=== PATIENT | male | born 1960 | race Hispanic/Latino ===

== ENCOUNTER 2019-10-22 14:03 | Inpatient (IN) | payer OTHER, SELFPAY ==
[~2019-10-22] VITALS: Ht 157.5 cm; Wt 80.6 kg
[2019-10-22 14:23] LABS: BASOPHILS % (AUTO) 0.7 % (0.0-5.0); HEMATOCRIT 44.9 % (42-54); LYMPHOCYTES % (AUTO) 12.1 % (21.0-51.0); MEAN CORPUSCULAR HEMOGLOBIN 29.1 pg (27.0-33.0); MEAN CORPUSCULAR HGB CONC 33.4 g/dL (32.0-36.0); MONOCYTES % (AUTO) 10.9 % (3.0-13.0); NEUTROPHILS % (AUTO) 75.6 % (40.0-77.0); NUCLEATED RED BLOOD CELLS 0.4 % (0.0-0.19); PLATELET COUNT (AUTO) 245 K/uL (130-400); RED BLOOD CELL COUNT(AUTO) 5.16 MIL/uL (4.50-6.20); RED CELL DISTRIBUTION WIDTH 14.8 % (11.0-15.5); WHITE BLOOD COUNT (AUTO) 5.5 K/uL (4.8-10.8)
[2019-10-22 14:33] LABS: INR 0.96 (0.85-1.15); PARTIAL THROMBOPLASTIN TIME 31.5 SEC (26.3-35.5); PROTHROMBIN TIME 10.1 SEC (9.6-11.6)
[2019-10-22 14:39] LABS: APPEARANCE,URINE Clear (CLEAR); BILIRUBIN,URINE Negative (NEGATIVE); COLOR,URINE Yellow (YELLOW); GLUCOSE, URINE (UA) >=1000 mg/dL (NEGATIVE); KETONES,URINE >=160 mg/dL (NEGATIVE); LEUKOCYTE ESTERASE ,URINE Negative (NEGATIVE); NITRATE,URINE Negative (NEGATIVE); OCCULT BLOOD,URINE Moderate (NEGATIVE); PROTEIN,URINE Trace mg/dL (NEGATIVE); UROBILINOGEN,URINE 0.2 mg/dL (0.2-1.0)
[2019-10-22 14:55] LABS: ALANINE AMINOTRANSFERASE 25 U/L (12-78); ALBUMIN 2.6 g/dL (3.5-5.0); ASPARTATE AMINOTRANSFERASE 18 U/L (10-37); BILIRUBIN,TOTAL 0.7 mg/dL (0.2-1.0); CREATINE KINASE, TOTAL 210 U/L (21-232); CREATININE 1.4 mg/dL (0.5-1.5); GLOMERULAR FILTR. RATE CALC 55 mL/min (>60); MYOGLOBIN 492 ng/mL (10-92); SODIUM SERUM 126 mmol/L (136-145); TOTAL PROTEIN, SERUM 7.5 g/dL (6.0-8.3); TROPONIN I < 0.04 ng/mL (0.00-0.06); UREA NITROGEN, BLOOD 37 mg/dL (7-18)
[2019-10-22 15:00] LABS: AMORPHOUS SEDIMENT,UR Few /LPF (None Seen); BACTERIA,URINE Few /HPF (None Seen); MUCUS,URINE Few LPF (None Seen); SQUAMOUS EPITHELIAL CELL,UR 0-2 /HPF (0-2)
[2019-10-22] MEDS ORDERED: ONDANSETRON HCL 4 MG/2 ML VIAL ONE (15:00)
[2019-10-22 15:05] LABS: CARBON DIOXIDE 10 mmol/L (21-32); CHLORIDE 87 mmol/L (101-111); POTASSIUM 2.5 mmol/L (3.5-5.1)
[2019-10-22] MEDS ORDERED: SODIUM CHLORIDE 0.9% 100 ML IV ONE ×2 (15:05→16:52)
[2019-10-22 15:18] LABS: GLUCOSE,RANDOM 759 mg/dL (70-105)
[2019-10-22] MEDS ORDERED: POTASSIUM CHLORIDE 20MEQ/100ML 200 ML IV ONE (15:22)
[2019-10-22] MEDS ORDERED: POTASSIUM BICARB/CIT AC 25 MEQ TABLET.EFF ONE (15:22)
[2019-10-22 15:33] LABS: MAGNESIUM 2.8 mg/dL (1.80-2.40); PHOSPHORUS 2.9 mg/dL (2.5-4.9)
[2019-10-22] MEDS ORDERED: OCTREOTIDE 1,250 MCG /NS 250ML (DRIP) IV SCH ×2 (16:00)
[2019-10-22 16:47] LABS: ABG BASE EXCESS -21.6 mmol/L (-2.0-3.0); ABG HCO3 4.8 mmol/L (21.0-28.0); ABG OXYGEN SATURATION 96.8 % (95.0-99.0); ABG PCO2 < 17 mmHg (35-48)
[2019-10-22] MEDS ORDERED: ZOSYN 3.375GM+NS 50ML 50 ML IV ONE (16:50)
[2019-10-22] MEDS ORDERED: INSULIN HUMULIN R 100 UNIT/ML 3ML ONE (16:52)
[2019-10-22] MEDS: SODIUM CHLORIDE 0.9% 1000ML 1,000 ML IV SCH ×4 (18:21→23:29)
[2019-10-22] MEDS ORDERED: SODIUM CHLORIDE 0.9% 1000ML 1,000 ML IV SCH (18:29)
[2019-10-22] MEDS ORDERED: DEXTROSE 5 %-0.45 % NACL 1,000 ML IV PRN (18:29)
[2019-10-22] MEDS ORDERED: MORPHINE SULFATE 2 MG/ML 1ML SYG IV PRN (18:30)
[2019-10-22 19:03] LABS: CHOLESTEROL 299 mg/dL (<200); HDL CHOLESTEROL 42 mg/dL (29-71); LDL DIRECT 145 mg/dL (0-99); TRIGLYCERIDES 614 mg/dL (30-200)
[2019-10-22] MEDS ORDERED: LIDOCAINE HCL-MPF 1% 2ML VIAL ONE (19:22)
[2019-10-22] MEDS ORDERED: POTASSIUM CHLORIDE 20MEQ/100ML 100 ML IV ONE (19:22)
[2019-10-22] MEDS ORDERED: POTASSIUM CHLORIDE 20 MEQ ERTAB PO ONE (19:27)
[2019-10-22 19:58] LABS: HEMOGLOBIN A1C 10.9 % (4.0-6.0)
[2019-10-23] MEDS ORDERED: DEXTROSE 5 %-0.45 % NACL 1,000 ML IV ONE (00:43)
[2019-10-23] MEDS ORDERED: SODIUM BICARB 50MEQ 50ML VIAL ONE ×2 (00:43→00:44)
[2019-10-23 00:47] LABS: BASOPHILS % (AUTO) 0.4 % (0.0-5.0); HEMATOCRIT 38.8 % (42-54); LYMPHOCYTES % (AUTO) 24.2 % (21.0-51.0); MEAN CORPUSCULAR HEMOGLOBIN 28.8 pg (27.0-33.0); MEAN CORPUSCULAR HGB CONC 35.1 g/dL (32.0-36.0); MEAN CORPUSCULAR VOLUME 82.2 fL (79-99); MONOCYTES % (AUTO) 10.5 % (3.0-13.0); NEUTROPHILS % (AUTO) 64.5 % (40.0-77.0); PLATELET COUNT (AUTO) 216 K/uL (130-400); RED BLOOD CELL COUNT(AUTO) 4.72 MIL/uL (4.50-6.20); WHITE BLOOD COUNT (AUTO) 5.3 K/uL (4.8-10.8)
[2019-10-23 01:02] LABS: ALBUMIN 2.2 g/dL (3.5-5.0); BILIRUBIN,TOTAL 0.6 mg/dL (0.2-1.0); CREATININE 1.1 mg/dL (0.5-1.5); MAGNESIUM 2.5 mg/dL (1.80-2.40); TOTAL PROTEIN, SERUM 6.3 g/dL (6.0-8.3)
[2019-10-23 01:15] LABS: POTASSIUM 2.8 mmol/L (3.5-5.1)
[2019-10-23] MEDS ORDERED: SODIUM CHLORIDE 0.9% 100 ML IV ONE ×3 (04:00→16:47)
[2019-10-23] MEDS: SODIUM CHLORIDE 0.9% 1000ML 1,000 ML IV SCH ×8 (04:21→19:29)
[2019-10-23] MEDS ORDERED: LIDOCAINE HCL-MPF 1% 2ML VIAL ONE (04:38)
[2019-10-23] MEDS ORDERED: POTASSIUM CHLORIDE 20MEQ/100ML 100 ML IV ONE (04:38)
[2019-10-23 07:07] LABS: BASOPHILS % (AUTO) 0.5 % (0.0-5.0); HEMATOCRIT 35.8 % (42-54); LYMPHOCYTES % (AUTO) 15.3 % (21.0-51.0); MEAN CORPUSCULAR HEMOGLOBIN 28.9 pg (27.0-33.0); MEAN CORPUSCULAR HGB CONC 34.9 g/dL (32.0-36.0); MEAN CORPUSCULAR VOLUME 82.9 fL (79-99); MONOCYTES % (AUTO) 10.2 % (3.0-13.0); NEUTROPHILS % (AUTO) 73.1 % (40.0-77.0); PLATELET COUNT (AUTO) 184 K/uL (130-400); RED BLOOD CELL COUNT(AUTO) 4.32 MIL/uL (4.50-6.20); RED CELL DISTRIBUTION WIDTH 14.2 % (11.0-15.5); WHITE BLOOD COUNT (AUTO) 5.7 K/uL (4.8-10.8)
[2019-10-23 07:33] LABS: BILIRUBIN,TOTAL 0.7 mg/dL (0.2-1.0)
[2019-10-23 08:14] LABS: ABG BASE EXCESS -5.7 mmol/L (-2.0-3.0); ABG HCO3 17.9 mmol/L (21.0-28.0); ABG OXYGEN SATURATION 94.1 % (95.0-99.0); ABG PCO2 30 mmHg (35-48)
[2019-10-23] MEDS: ENOXAPARIN SODIUM 30 MG/0.3 ML SQ SCH (09:00)
[2019-10-23] MEDS ORDERED: POTASSIUM CHLORIDE 10MEQ/100ML 100 ML IV ONE ×2 (10:01→14:49)
--- NOTE | 2019-10-23 10:39 | NUR ---
CHART REVIEWED IN MED [facility] GENERATED. WILL FOLLOW
[2019-10-23] MEDS ORDERED: NACL IVP SCH (12:30)
[2019-10-23] MEDS ORDERED: DEXTROSE IVP SCH (12:30)
[2019-10-23] MEDS ORDERED: SODIUM BICARB 8.4% IVP SCH (12:30)
[2019-10-23] MEDS ORDERED: SYRING IVP SCH (12:30)
[2019-10-23] MEDS ORDERED: ACETAMINOPHEN EXTRA STRENGTH 500 MG TABLET ONE (12:30)
[2019-10-23 12:49] LABS: CREATININE 0.9 mg/dL (0.5-1.5); POTASSIUM 3.5 mmol/L (3.5-5.1)
[2019-10-23] MEDS ORDERED: INSULIN HUMULIN R 100 UNIT/ML 3ML ONE (13:40)
--- NOTE | 2019-10-23 15:42 | NUR ---
INITIAL MET W PATIENT FOR DC PLANNING. PATIENT LIVES W MOM, IS INDP, ACTIVE,NEW DX DM , WILL NEED GLUCOMETER, STRIPS ETC, UNINSURCED, NO PCP, PENDING COMMUNITY PKT CM TO FOLLOW ,DCP HOME WI MOM, FRIEND REYES ULLOA TO SUPPLY TRANSPORT HOME Addendum: 10/23/19 at 1547 by ABY ULLOA RN CM Amended: Links added.
[2019-10-23 16:46] LABS: CREATININE 0.9 mg/dL (0.5-1.5); POTASSIUM 3.3 mmol/L (3.5-5.1)
--- NOTE | 2019-10-23 22:30 | NUR ---
ADMISSION 2129 ED REPORT RECEIVED FROM JAIME WHITTAKER RN PT ADMITTED RM 215 AT 2230 ACCOMPANIED BY NEPHBULL NO BELONGINGS/MEDICATIONS AT BEDSIDE ADMISSION DATABASE ALREADY COMPLETED. NAKUL COTTER NOTIFIED. WILL CONTINUE TO MONITOR.
[2019-10-23 22:45] VITALS: BP 143/72
[2019-10-23 23:00] VITALS: BP 142/72
[2019-10-23 23:15] VITALS: BP 134/69
[2019-10-23 23:27] LABS: CREATININE 0.8 mg/dL (0.5-1.5)
[2019-10-23 23:28] LABS: POTASSIUM 2.8 mmol/L (3.5-5.1)
[2019-10-23 23:30] VITALS: BP 152/77
[2019-10-23] MEDS: POTASSIUM CHLORIDE 10MEQ/100ML 100 ML IV PRN (23:32)
[2019-10-23 23:45] VITALS: BP 145/75
[2019-10-23] MEDS ORDERED: INSULIN REGULAR, HUMAN 3ML 100 UNIT in SODIUM CHLORIDE 0.9% 99 ML IV PRN ×2 (23:45)
[2019-10-24] VITALS (17 sets, daily range): BP systolic 121–166; BP diastolic 56–95
[2019-10-24] MEDS: SODIUM CHLORIDE 0.9% 1000ML 1,000 ML IV SCH ×6 (00:21→17:32)
[2019-10-24] MEDS: POTASSIUM CHLORIDE 10MEQ/100ML 100 ML IV PRN (00:44)
[2019-10-24 04:13] LABS: BASOPHILS % (AUTO) 0.2 % (0.0-5.0); EOSINOPHILS % (AUTO) 0.2 % (0.0-8.0); HEMATOCRIT 31.4 % (42-54); LYMPHOCYTES % (AUTO) 20.1 % (21.0-51.0); MEAN CORPUSCULAR HEMOGLOBIN 28.8 pg (27.0-33.0); MEAN CORPUSCULAR HGB CONC 34.7 g/dL (32.0-36.0); MEAN CORPUSCULAR VOLUME 82.8 fL (79-99); MONOCYTES % (AUTO) 8.2 % (3.0-13.0); NEUTROPHILS % (AUTO) 70.1 % (40.0-77.0); PLATELET COUNT (AUTO) 154 K/uL (130-400); RED BLOOD CELL COUNT(AUTO) 3.79 MIL/uL (4.50-6.20); RED CELL DISTRIBUTION WIDTH 14.1 % (11.0-15.5); WHITE BLOOD COUNT (AUTO) 5.8 K/uL (4.8-10.8)
[2019-10-24 04:51] LABS: CREATININE 0.7 mg/dL (0.5-1.5); MAGNESIUM 2.4 mg/dL (1.80-2.40); PHOSPHORUS 3.1 mg/dL (2.5-4.9); POTASSIUM 2.8 mmol/L (3.5-5.1)
[2019-10-24] MEDS: POTASSIUM CHLORIDE 20MEQ/100ML 100 ML IV PRN ×2 (05:48→08:53)
--- NOTE | 2019-10-24 08:30 | NUR ---
ASSESSMENT Resting comfortably in bed. Denies discomforts. Denies abd pain/tenderness or nausea. SR on tele. Remains on NC O2 - attempted room air but pt had increased work of breathing as well as saturation of 92% (96% on O2). Abd obese, soft with normoactive bowel sounds. F/C patent - cloudy yellow urine. PIV to RH edematous - pt does not report discomfort at site - converted to SL. RAC, LAC PIVs patent with brisk blood return. Pt remains on bicarb gtt, insulin gtt, maintenance fluids. Assessment completed/recorded. Pt assisted OOB to chair - fair activity tolerance. Needed items placed within reach. No complaints or concerns voiced by pt.
[2019-10-24 08:38] LABS: ABG BASE EXCESS 4.1 mmol/L (-2.0-3.0); ABG OXYGEN SATURATION 88.1 % (95.0-99.0); ABG PCO2 35 mmHg (35-48)
[2019-10-24] MEDS: ENOXAPARIN SODIUM 30 MG/0.3 ML SQ SCH (09:03)
[2019-10-24] MEDS ORDERED: POTASSIUM CHLORIDE 20 MEQ ERTAB PO SCH ×2 (09:15→14:30)
[2019-10-24] MEDS ORDERED: INSULIN GLARGINE 100 UNITS/ML 10 ML VIAL SQ SCH ×2 (09:15→21:00)
[2019-10-24] MEDS ORDERED: FLU VACC QS2019-20 36MOS UP/PF 60 MCG/0.5 ML ML IM ONE (10:00)
--- NOTE | 2019-10-24 11:00 | NUR ---
PT CARE SQ insulin administered as ordered - refer to eMAR. Insulin gtt and bicarb gtt discontinued as ordered. No acute changes in pt assessment. No complaints or concerns voiced by pt. Pending transfer out of ICU.
[2019-10-24] MEDS: INSULIN LISPRO 100 UNIT/ML 3ML SQ SCH ×4 (11:47→16:31)
--- NOTE | 2019-10-24 13:50 | NUR ---
STATUS PT RECEIVED FROM ICU RM 215 VIA WC. TOLERATED WELL. FAMILY @ BEDSIDE. A/O X 3. NO SOB. NO DISTRESS NOTED. DENIES CHEST PAIN OR DISCOMFORT. TELE: SR. DENIES N/V AND/OR DIARRHEA. 0.9% NACL INFUSING @ 125 ML/HR. UP AD ANCA. ORIENTED TO RM. INSTRUCTED TO CALL FOR ASSISTANCE. CALL FLORESITA W/IN REACH.
--- NOTE | 2019-10-24 14:12 | NUR ---
RD NOTIFICATION PT WITH DKA, ACUTE PANCREATITIS AND LIPID METABOLISM DYSFUNCTION. HE WAS UNAWARE THAT HE HAD DM ACCORDING TO PT. DIET: NPO AT THIS TIME. LABS REVIEWED. MEDS REVIEWED. SKIN IS INTACT. BMI IS 32.6 CLASSIFIED OBESE. HE IS UNAWARE OF FOODS TO AVOID/ RECOMMENDED IN REGARDS TO HIS CURRENT CONDITION. RD PROVIDED LOW FAT, HEART HEALTHY, AND DIABETES DIET AND NUTRITION EDUCATION. PT AND HIS ASKED QUESTIONS, RD ANSWERED AND THE COUPLE VERBALIZED UNDERSTANDING. EDUCATION MATERIALS WERE PROVIDED. BG GOALS WERE ESTABLISHED WITH THE PT. RD ENCOURAGED PT TO NOTIFY RN IF HE HAS ANY OTHER QUESTIONS OR CONCERNS REGARDING DIET AND NUTRITION. ADVANCE DIET TOLERATED TO 75GMCCD CLEAR LIQUIDS, FULL, LASTLY LOW FAT, HEART HEALTHY, AND 75GMCCD NUTRITION EDUCATION COMPLETED Addendum: 10/24/19 at [address] Amended: Links added.
--- NOTE | 2019-10-24 14:20 | NUR ---
NUTRITION EDUCATION COMPLETED HE IS UNAWARE OF FOODS TO AVOID/ RECOMMENDED IN REGARDS TO HIS CURRENT CONDITION. RD PROVIDED LOW FAT, HEART HEALTHY, AND DIABETES DIET AND NUTRITION EDUCATION. PT AND HIS ASKED QUESTIONS, RD ANSWERED AND THE COUPLE VERBALIZED UNDERSTANDING. EDUCATION MATERIALS WERE PROVIDED. BG GOALS WERE ESTABLISHED WITH THE PT. RD ENCOURAGED PT TO NOTIFY RN IF HE HAS ANY OTHER QUESTIONS OR CONCERNS REGARDING DIET AND NUTRITION. Addendum: 10/24/19 at [address] Amended: Links added.
--- NOTE | 2019-10-24 14:30 | NUR ---
TRANSFER Pt transferred to room 223 by wheelchair. Care of pt endorsed to NEYMAR Hunter.
[2019-10-24 17:19] LABS: CREATININE 0.6 mg/dL (0.5-1.5); MAGNESIUM 2.2 mg/dL (1.80-2.40)
[2019-10-24] MEDS ORDERED: ATORVASTATIN CALCIUM 20 MG TABLET PO SCH (21:00)
--- NOTE | 2019-10-24 23:25 | NUR ---
RECEIVE REPORT RECEIVED FROM NEYMAR CAMP. ASSUMED PT CARE FROM NOW. NURSE'S ROUNDS DONE.
[2019-10-25] MEDS: LIDOCAINE HCL-MPF 1% 2ML VIAL IJ PRN ×2 (00:34→05:11)
[2019-10-25] MEDS: POTASSIUM CHLORIDE 20MEQ/100ML 100 ML IV PRN ×2 (00:34→05:11)
[2019-10-25] MEDS: SODIUM CHLORIDE 0.9% 1000ML 1,000 ML IV SCH ×2 (00:41→04:39)
--- NOTE | 2019-10-25 02:00 | NUR ---
ROUNDS PT RESTING WELL, FAIRLY ASLEEP WITH RESPIRATIONS EVEN AND UNLABORED. NO DISTRESS NOTED. KEPT UNDISTURBED FOR NOW. WILL MONITOR PT. CALL LIGHT WITHIN REACH.
[2019-10-25 04:00] VITALS: BP 130/77
[2019-10-25 04:36] LABS: HEMATOCRIT 34.1 % (42-54); MEAN CORPUSCULAR HEMOGLOBIN 28.9 pg (27.0-33.0); MEAN CORPUSCULAR HGB CONC 34.3 g/dL (32.0-36.0); MEAN CORPUSCULAR VOLUME 84.2 fL (79-99); NUCLEATED RED BLOOD CELLS 0.3 % (0.0-0.19); PLATELET COUNT (AUTO) 152 K/uL (130-400); RED BLOOD CELL COUNT(AUTO) 4.05 MIL/uL (4.50-6.20); RED CELL DISTRIBUTION WIDTH 14.2 % (11.0-15.5); WHITE BLOOD COUNT (AUTO) 9.7 K/uL (4.8-10.8)
[2019-10-25 04:57] LABS: CREATININE 0.5 mg/dL (0.5-1.5); MAGNESIUM 2.2 mg/dL (1.80-2.40); POTASSIUM 3.3 mmol/L (3.5-5.1)
[2019-10-25] MEDS: INSULIN LISPRO 100 UNIT/ML 3ML SQ SCH ×3 (06:29→11:30)
--- NOTE | 2019-10-25 06:40 | NUR ---
MEDS AWAKENED PT FOR DUE MEDS. DENIES ANY NEEDS AT THIS TIME. INSULIN DOSE ADMINISTERED, TOLERATED WELL. KEPT COMFORTAFOR MORE CARE.
[2019-10-25] MEDS ORDERED: POTASSIUM CHLORIDE 20MEQ/100ML 100 ML IV PRN (07:30)
[2019-10-25] MEDS ORDERED: POTASSIUM CHLORIDE 10% ELIXIR 20 MEQ/15 ML UDCUP PO PRN (07:30)
[2019-10-25 07:38] VITALS: BP 127/83
--- NOTE | 2019-10-25 08:00 | NUR ---
AM ASSESSMENT PT SITTING IN BED, WATCHING TV. A/O X 3. NO SOB. NO DISTRESS NOTED. DENIES CHEST PAIN OR DISCOMFORT. DENIES PALPITATIONS. TELE: SR. DENIES N/V AND/OR DIARRHEA. 0.9% NACL INFUSING @ 125 ML/HR. UP AD ANCA. INSTRUCTED TO CALL FOR ASSISTANCE. CALL FLORESITA W/IN REACH.
[2019-10-25] MEDS: ENOXAPARIN SODIUM 30 MG/0.3 ML SQ SCH (08:12)
[2019-10-25] MEDS: POTASSIUM CHLORIDE 20 MEQ ERTAB PO PRN ×2 (08:13→10:40)
[2019-10-25] MEDS ORDERED: LISINOPRIL 5 MG TABLET PO SCH (09:00)
[2019-10-25] MEDS ORDERED: HUM10VIA SQ ×2 (09:06)
[2019-10-25] MEDS ORDERED: ATOR20TA65 PO (09:06)
[2019-10-25] MEDS ORDERED: LISI-617 PO (09:06)
--- NOTE | 2019-10-25 09:28 | NUR ---
RD UPDATE Notification for Diabetes Nutrition education received. Diabetes education previously provided by RD on 10/24/19.
--- NOTE | 2019-10-25 10:40 | NUR ---
DISCHARGE TELE MOSES REMOVED @ THIS TIME.
[2019-10-25 11:39] VITALS: BP 149/84
[2019-10-25] MEDS ORDERED: FLU VACC QS2019-20 36MOS UP/PF 60 MCG/0.5 ML ML IM ONE (12:15)
--- NOTE | 2019-10-25 12:50 | NUR ---
DISCHARGE VERBAL & WRITTEN DISCHARGE INSTRUCTIONS REVIEWED & GIVEN TO PT & FAMILY. PROPER CARE & MGT OF DIABETES & HTN REVIEWED. NEW PRESCRIBED MEDICATIONS REVIEWED. PT & FAMILY INFORMED PRESCRIPTION TRANSMITTED TO PHARMACY IN FILE. REINFORCED IMPORTANCE OF ESTABLISHING CARE W/PCP. VOUCHER INFORMATION FOR [facility] GIVEN TO PT. IV X 3 DC'D. PT & FAMILY TO GATHER PERSONAL BELONGINGS. WILL NOTIFY STAFF WHEN READY TO BE TAKEN TO PRIVATE VEHICLE.
--- NOTE | 2019-10-25 13:45 | NUR ---
DISCHARGE PT TAKEN TO PRIVATE VEHICLE VIA WC BY Sarina DUNN PCP, ACCOMPANIED BY FAMILY. NO DISTRESS NOTED.
--- NOTE | 2019-10-25 14:50 | NUR ---
SELF PAY GAVE LOW INCOME CLINIC INFO AND LOW MED INFO WELL HEB INFO FOR GLUCOMETER POLICE [employer] PRECINCT. Addendum: 10/25/19 at 1451 by QUETA PRICE RN CM Amended: Links added.
[2019-10-25] MEDS ORDERED: INSULIN HUMULIN 70/30 100 UNIT/ML 3ML SQ SCH (16:30)
[2019-10-26] MEDS ORDERED: INSULIN HUMULIN 70/30 100 UNIT/ML 3ML SQ SCH (07:30)
[2019-10-26] MEDS ORDERED: LISINOPRIL 5 MG TABLET PO SCH (09:00)
== END 2019-10-25 13:45 | disposition home or self-care (01) | DRG 637 ==
LOC: EDH 14:03 → EDHIP 14:04 → 2CH 10-23 22:46 → 2DH 10-24 13:55
PROVIDERS: ADMIT Internal Medicine; ATTEND Internal Medicine
DX: E11.10 Type 2 diabetes mellitus with ketoacidosis without coma (principal); K85.90 Acute pancreatitis without necrosis or infection, unspecified; E44.0 Moderate protein-calorie malnutrition; N17.9 Acute kidney failure, unspecified; E87.1 Hypo-osmolality and hyponatremia; E83.39 Other disorders of phosphorus metabolism; E86.1 Hypovolemia; E66.01 Morbid (severe) obesity due to excess calories; E78.1 Pure hyperglyceridemia; E87.6 Hypokalemia; K57.90 Diverticulosis of intestine, part unspecified, without perforation or abscess without bleeding; E83.42 Hypomagnesemia; K80.20 Calculus of gallbladder without cholecystitis without obstruction; K44.9 Diaphragmatic hernia without obstruction or gangrene; M47.815 Spondylosis without myelopathy or radiculopathy, thoracolumbar region; Z68.32 Body mass index [BMI] 32.0-32.9, adult; Z91.19 Patient's noncompliance with other medical treatment and regimen; Z23 Encounter for immunization; Z79.899 Other long term (current) drug therapy
CPT/HCPCS: 36415; 36600; 71045; 74176; 76705; 80048; 80053; 80061; 81001; 82010; 82150; 82550; 82803; 82948; 83036; 83605; 83690; 83735; 83874; 84100; 84132; 84145; 84478; 84484; 85025; 85027; 85610; 85730; 86850; 86900; 86901; 87040; 87088; 93005; 99291; G0378; J1650; J1815; J2354; J2405; J2543; J3480; J3490; J7030; J7042; Q2035

== ENCOUNTER 2020-08-29 05:36 | Inpatient (IN) | payer MEDICAID ==
[~2020-08-29] VITALS: Ht 157.5 cm; Wt 92.5 kg
[~2020-08-29 05:36] MED LIST: ATOR20TA65 PO; HUM10VIA SQ; LISI-617 PO
[2020-08-29] MEDS ORDERED: ONDANSETRON HCL 4 MG/2 ML VIAL ONE (06:20)
[2020-08-29] MEDS ORDERED: SODIUM CHLORIDE 0.9% 1000ML 2,000 ML IV ONE (06:20)
[2020-08-29 06:24] LABS: BASOPHILS % (AUTO) 0.2 % (0.0-5.0); EOSINOPHILS % (AUTO) 0.5 % (0.0-8.0); HEMATOCRIT 45.3 % (42-54); LYMPHOCYTES % (AUTO) 14.7 % (21.0-51.0); MEAN CORPUSCULAR HEMOGLOBIN 29.6 pg (27.0-33.0); MEAN CORPUSCULAR HGB CONC 33.6 g/dL (32.0-36.0); MEAN CORPUSCULAR VOLUME 88.1 fL (79-99); MONOCYTES % (AUTO) 7.3 % (3.0-13.0); NEUTROPHILS % (AUTO) 76.9 % (40.0-77.0); PLATELET COUNT (AUTO) 220 K/uL (130-400); RED BLOOD CELL COUNT(AUTO) 5.14 MIL/uL (4.50-6.20); RED CELL DISTRIBUTION WIDTH 13.2 % (11.0-15.5)
[2020-08-29 06:39] LABS: ABG OXYGEN SATURATION 88.3 % (95.0-99.0); BASE EXCESS,VENOUS BLOOD GAS -0.8 (-2.0-3.0); HCO3,VENOUS BLOOD GAS 23.1 (21.0-28.0); PCO2,VENOUS BLOOD GAS 36 (35-48); PH,VENOUS BLOOD GAS 7.424 (7.350-7.450)
[2020-08-29 06:39] LABS: ALBUMIN 3.1 g/dL (3.5-5.0); BILIRUBIN,TOTAL 1.1 mg/dL (0.2-1.0); CREATININE 1.1 mg/dL (0.5-1.5); POTASSIUM 3.6 mmol/L (3.5-5.1); TOTAL PROTEIN, SERUM 8.1 g/dL (6.0-8.3)
[2020-08-29 06:53] LABS: INR 0.96 (0.85-1.15); PARTIAL THROMBOPLASTIN TIME 32.6 SEC (26.3-35.5); PROTHROMBIN TIME 10.4 SEC (9.6-11.6)
[2020-08-29 08:15] LABS: APPEARANCE,URINE Clear (CLEAR); BILIRUBIN,URINE Small (NEGATIVE); COLOR,URINE Dark Yellow (YELLOW); GLUCOSE, URINE (UA) TRACE mg/dL (NEGATIVE); KETONES,URINE Trace mg/dL (NEGATIVE); LEUKOCYTE ESTERASE ,URINE Negative (NEGATIVE); NITRATE,URINE Negative (NEGATIVE); OCCULT BLOOD,URINE Moderate (NEGATIVE); PROTEIN,URINE POS 2+ mg/dL (NEGATIVE)
[2020-08-29 08:30] LABS: BACTERIA,URINE Rare /HPF (None Seen); MUCUS,URINE Moderate LPF (None Seen); RBC,URINE 0-1 /HPF (0-1); SQUAMOUS EPITHELIAL CELL,UR Rare /HPF (0-2); WBC,URINE 0-1 /HPF (0-1)
[2020-08-29] MEDS ORDERED: ZOSYN 3.375GM+NS 50ML 50 ML IV ONE ×2 (09:42→18:07)
[2020-08-29] MEDS ORDERED: DiphenhydrAMINE HCL 50 MG/ML VIAL IV PRN (10:30)
[2020-08-29] MEDS ORDERED: GUAIFENESIN-DM 200/20 MG 10 ML PO PRN (10:30)
[2020-08-29] MEDS ORDERED: DIPHENHYDRAMINE HCL 25 MG CAPSULE PO PRN (10:30)
[2020-08-29] MEDS ORDERED: ONDANSETRON HCL 4 MG/2 ML VIAL IV PRN (10:30)
[2020-08-29] MEDS ORDERED: GLUCAGON 1MG KIT 1 MG ML IM PRN (10:30)
[2020-08-29] MEDS: SODIUM CHLORIDE 0.9% 1000ML 1,000 ML IV SCH ×2 (10:30→21:56)
[2020-08-29] MEDS ORDERED: MORPHINE SULFATE 2 MG/ML 1ML SYG IV PRN (10:30)
[2020-08-29] MEDS ORDERED: HYDRALAZINE HCL 20 MG/ML VIAL IV PRN (10:30)
[2020-08-29] MEDS ORDERED: MORPHINE SULFATE 4 MG/1ML SYG IV PRN (10:30)
[2020-08-29] MEDS ORDERED: ACETAMINOPHEN 325 MG TAB PO PRN ×2 (10:30)
[2020-08-29] MEDS ORDERED: ZOLPIDEM TARTRATE 5 MG TAB PO PRN (10:30)
[2020-08-29] MEDS ORDERED: MAG HYDROX/AL HYDROX/SIMETH ES 30 ML SUSP UDCUP PO PRN (10:30)
[2020-08-29] MEDS ORDERED: DEXTROSE 50%-WATER 50 ML DISP.SYRIN IV PRN (10:30)
[2020-08-29] MEDS ORDERED: ACETAMINOPHEN-CODEINE 300/30MG TAB PO PRN (10:30)
[2020-08-29] MEDS: FAMOTIDINE/PF 20 MG/2 ML VIAL IV SCH ×2 (10:55→21:55)
[2020-08-29] MEDS: INSULIN HUMULIN R 100 UNIT/ML 3ML SQ SCH ×3 (11:30→20:52)
[2020-08-29 11:36] LABS: HEMOGLOBIN A1C 7.3 % (4.0-6.0)
[2020-08-29] MEDS: ZOSYN 3.375GM+NS 50ML 50 ML IV SCH ×2 (13:00→21:56)
[2020-08-29] MEDS ORDERED: BISACODYL 10 MG SUPP.RECT RC PRN (19:30)
[2020-08-29 21:08] VITALS: BP 137/65
[2020-08-30 00:15] VITALS: BP 126/74
[2020-08-30 04:54] VITALS: BP 132/68
[2020-08-30 05:12] LABS: BASOPHILS % (AUTO) 0.4 % (0.0-5.0); EOSINOPHILS % (AUTO) 2.7 % (0.0-8.0); HEMATOCRIT 39.8 % (42-54); LYMPHOCYTES % (AUTO) 27.5 % (21.0-51.0); MEAN CORPUSCULAR HEMOGLOBIN 29.3 pg (27.0-33.0); MEAN CORPUSCULAR HGB CONC 32.7 g/dL (32.0-36.0); MEAN CORPUSCULAR VOLUME 89.6 fL (79-99); MONOCYTES % (AUTO) 8.6 % (3.0-13.0); NEUTROPHILS % (AUTO) 60.3 % (40.0-77.0); PLATELET COUNT (AUTO) 218 K/uL (130-400); RED BLOOD CELL COUNT(AUTO) 4.44 MIL/uL (4.50-6.20); RED CELL DISTRIBUTION WIDTH 13.3 % (11.0-15.5); WHITE BLOOD COUNT (AUTO) 12.4 K/uL (4.8-10.8)
[2020-08-30 05:22] LABS: CREATININE 0.9 mg/dL (0.5-1.5); POTASSIUM 3.6 mmol/L (3.5-5.1)
[2020-08-30] MEDS: ZOSYN 3.375GM+NS 50ML 50 ML IV SCH ×3 (06:43→21:38)
[2020-08-30] MEDS: SODIUM CHLORIDE 0.9% 1000ML 1,000 ML IV SCH ×2 (06:43→16:30)
[2020-08-30] MEDS: INSULIN HUMULIN R 100 UNIT/ML 3ML SQ SCH ×4 (06:44→21:00)
[2020-08-30 07:00] VITALS: BP 115/64
[2020-08-30 08:37] LABS: ALBUMIN 2.5 g/dL (3.5-5.0); BILIRUBIN,DIRECT 0.3 mg/dL (0.0-0.3); BILIRUBIN,TOTAL 1.3 mg/dL (0.2-1.0); TOTAL PROTEIN, SERUM 6.7 g/dL (6.0-8.3)
[2020-08-30] MEDS: FAMOTIDINE/PF 20 MG/2 ML VIAL IV SCH ×2 (09:00→21:38)
[2020-08-30] MEDS: ENOXAPARIN SODIUM 40 MG/0.4 ML SYRINGE SQ SCH (10:06)
[2020-08-30 11:00] VITALS: BP 128/71
[2020-08-30 17:35] VITALS: BP 150/83
[2020-08-30 19:00] VITALS: BP 145/89
[2020-08-31] VITALS (7 sets, daily range): BP systolic 136–158; BP diastolic 73–82
[2020-08-31] MEDS: SODIUM CHLORIDE 0.9% 1000ML 1,000 ML IV SCH ×3 (02:30→19:56)
[2020-08-31] MEDS: ZOSYN 3.375GM+NS 50ML 50 ML IV SCH ×3 (05:18→19:56)
[2020-08-31] MEDS: INSULIN HUMULIN R 100 UNIT/ML 3ML SQ SCH ×4 (06:11→19:38)
[2020-08-31] MEDS: LISINOPRIL 5 MG TABLET PO SCH (13:23)
[2020-08-31] MEDS: ENOXAPARIN SODIUM 40 MG/0.4 ML SYRINGE SQ SCH (13:23)
[2020-08-31] MEDS: FAMOTIDINE/PF 20 MG/2 ML VIAL IV SCH ×2 (13:23→19:56)
[2020-08-31 14:32] LABS: ALBUMIN 2.7 g/dL (3.5-5.0); BILIRUBIN,TOTAL 0.7 mg/dL (0.2-1.0); CREATININE 0.8 mg/dL (0.5-1.5); POTASSIUM 3.6 mmol/L (3.5-5.1); TOTAL PROTEIN, SERUM 7.2 g/dL (6.0-8.3)
[2020-09-01 04:09] VITALS: BP 124/68
[2020-09-01] MEDS: ZOSYN 3.375GM+NS 50ML 50 ML IV SCH (05:06)
[2020-09-01] MEDS: INSULIN HUMULIN R 100 UNIT/ML 3ML SQ SCH (05:08)
[2020-09-01 06:03] LABS: BASOPHILS % (AUTO) 0.7 % (0.0-5.0); EOSINOPHILS % (AUTO) 3.5 % (0.0-8.0); HEMATOCRIT 40.8 % (42-54); LYMPHOCYTES % (AUTO) 33.4 % (21.0-51.0); MEAN CORPUSCULAR HEMOGLOBIN 29.2 pg (27.0-33.0); MEAN CORPUSCULAR HGB CONC 33.1 g/dL (32.0-36.0); MEAN CORPUSCULAR VOLUME 88.1 fL (79-99); MONOCYTES % (AUTO) 7.5 % (3.0-13.0); NEUTROPHILS % (AUTO) 54.5 % (40.0-77.0); PLATELET COUNT (AUTO) 257 K/uL (130-400); RED BLOOD CELL COUNT(AUTO) 4.63 MIL/uL (4.50-6.20); RED CELL DISTRIBUTION WIDTH 12.9 % (11.0-15.5); WHITE BLOOD COUNT (AUTO) 8.5 K/uL (4.8-10.8)
[2020-09-01 06:46] LABS: POTASSIUM 3.4 mmol/L (3.5-5.1)
[2020-09-01] MEDS ORDERED: POTASSIUM CHLORIDE 20 MEQ ERTAB PO SCH (07:45)
[2020-09-01 08:57] VITALS: BP 152/85
[2020-09-01] MEDS: LISINOPRIL 5 MG TABLET PO SCH (09:55)
[2020-09-01] MEDS: FAMOTIDINE/PF 20 MG/2 ML VIAL IV SCH (09:55)
[2020-09-01] MEDS: ENOXAPARIN SODIUM 40 MG/0.4 ML SYRINGE SQ SCH (09:56)
[2020-09-01] MEDS: SODIUM CHLORIDE 0.9% 1000ML 1,000 ML IV SCH (09:56)
[2020-09-01 12:42] VITALS: BP 145/87
== END 2020-09-01 17:00 | disposition home or self-care (01) ==
LOC: EDH 05:36 → EDHIP 05:37 → 3CH 18:37
PROVIDERS: ADMIT Hospitalist; ATTEND Hospitalist
DX: K81.0 Acute cholecystitis (principal); E11.65 Type 2 diabetes mellitus with hyperglycemia; I10 Essential (primary) hypertension; M10.9 Gout, unspecified; E66.9 Obesity, unspecified; Z68.37 Body mass index [BMI] 37.0-37.9, adult; E78.5 Hyperlipidemia, unspecified; K21.9 Gastro-esophageal reflux disease without esophagitis; K76.0 Fatty (change of) liver, not elsewhere classified; Z87.891 Personal history of nicotine dependence; F10.10 Alcohol abuse, uncomplicated
CPT/HCPCS: 36415; 36600; 74181; 76705; 80048; 80053; 80076; 81001; 82010; 82550; 82803; 82948; 83036; 83605; 83690; 84484; 85025; 85610; 85730; 93005; G0378; J1650; J2405; J2543; J3490; J7030

== ENCOUNTER 2020-09-27 19:32 | Inpatient (IN) | payer MEDICAID ==
[2020-09-27] MEDS ORDERED: SODIUM CHLORIDE 0.9% 1000ML 1,000 ML IV ONE (20:11)
[2020-09-27] MEDS ORDERED: ONDANSETRON HCL 4 MG/2 ML VIAL ONE (20:30)
[2020-09-27] MEDS ORDERED: METOCLOPRAMIDE 10 MG/2 ML VIAL ONE (20:30)
[2020-09-27] MEDS ORDERED: FAMOTIDINE/PF 20 MG/2 ML VIAL IV ONE (20:31)
[2020-09-27 20:37] LABS: BASOPHILS % (AUTO) 0.2 % (0.0-5.0); HEMATOCRIT 43.6 % (42-54); MEAN CORPUSCULAR HEMOGLOBIN 29.4 pg (27.0-33.0); MEAN CORPUSCULAR HGB CONC 33.5 g/dL (32.0-36.0); MEAN CORPUSCULAR VOLUME 87.9 fL (79-99); MONOCYTES % (AUTO) 6.3 % (3.0-13.0); NEUTROPHILS % (AUTO) 83.1 % (40.0-77.0); PLATELET COUNT (AUTO) 164 K/uL (130-400); RED BLOOD CELL COUNT(AUTO) 4.96 MIL/uL (4.50-6.20); RED CELL DISTRIBUTION WIDTH 13.8 % (11.0-15.5); WHITE BLOOD COUNT (AUTO) 16.6 K/uL (4.8-10.8)
[2020-09-27 20:51] LABS: INR 1.08 (0.85-1.15); PROTHROMBIN TIME 11.5 SEC (9.6-11.6)
[2020-09-27 20:52] LABS: PARTIAL THROMBOPLASTIN TIME 32.6 SEC (26.3-35.5)
[2020-09-27 20:53] LABS: CREATININE 0.9 mg/dL (0.5-1.5); POTASSIUM 3.7 mmol/L (3.5-5.1)
[2020-09-27 20:57] LABS: ALBUMIN 3.3 g/dL (3.5-5.0)
[2020-09-27] MEDS ORDERED: IOHEXOL-350 75 ML VIAL IV ONE (20:59)
[2020-09-27 22:46] LABS: APPEARANCE,URINE Clear (CLEAR); BILIRUBIN,URINE Negative (NEGATIVE); COLOR,URINE Yellow (YELLOW); GLUCOSE, URINE (UA) TRACE mg/dL (NEGATIVE); KETONES,URINE 15 mg/dL (NEGATIVE); LEUKOCYTE ESTERASE ,URINE Negative (NEGATIVE); NITRATE,URINE Negative (NEGATIVE); OCCULT BLOOD,URINE Moderate (NEGATIVE); PH,URINE 5.5 (5.0-8.0); PROTEIN,URINE POS 1+ mg/dL (NEGATIVE)
[2020-09-27] MEDS ORDERED: ZOSYN 3.375GM+NS 50ML 50 ML IV ONE (22:47)
[2020-09-27 22:52] LABS: AMPHET/METH SCREEN,URINE NEGATIVE (NEGATIVE); BARBITURATE SCREEN, URINE NEGATIVE (NEGATIVE); BENZODIAZEPINES SCREEN,URINE NEGATIVE (NEGATIVE); CANNABINOID SCREEN,URINE NEGATIVE (NEGATIVE); COCAINE SCREEN,URINE NEGATIVE (NEGATIVE); OPIATE SCREEN,URINE NEGATIVE (NEGATIVE); PHENCYCLIDINE SCREEN,URINE NEGATIVE (NEGATIVE)
[2020-09-27 23:45] LABS: BACTERIA,URINE Rare /HPF (None Seen); MUCUS,URINE Rare LPF (None Seen); SQUAMOUS EPITHELIAL CELL,UR 0-2 /HPF (0-2); WBC,URINE 0-1 /HPF (0-1)
[2020-09-27] MEDS: ZOSYN 3.375GM+NS 50ML 50 ML IV SCH (23:45)
[2020-09-27] MEDS: SODIUM CHLORIDE 0.9% 1000ML 1,000 ML IV SCH (23:45)
[2020-09-27] MEDS ORDERED: ONDANSETRON HCL 4 MG/2 ML VIAL IV PRN (23:45)
[2020-09-28] MEDS ORDERED: MORPHINE SULFATE 2 MG/ML 1ML SYG IVP PRN
[2020-09-28] MEDS ORDERED: ACETAMINOPHEN EXTRA STRENGTH 500 MG TABLET ONE (00:20)
[2020-09-28] MEDS ORDERED: SODIUM CHLORIDE 0.9% 1000ML 1,000 ML IV ONE (01:34)
[2020-09-28 04:48] LABS: BASOPHILS % (AUTO) 0.1 % (0.0-5.0); EOSINOPHILS % (AUTO) 0.2 % (0.0-8.0); HEMATOCRIT 38.5 % (42-54); LYMPHOCYTES % (AUTO) 17.1 % (21.0-51.0); MEAN CORPUSCULAR HEMOGLOBIN 29.6 pg (27.0-33.0); MEAN CORPUSCULAR HGB CONC 33.5 g/dL (32.0-36.0); MEAN CORPUSCULAR VOLUME 88.3 fL (79-99); MONOCYTES % (AUTO) 6.9 % (3.0-13.0); NEUTROPHILS % (AUTO) 75.3 % (40.0-77.0); PLATELET COUNT (AUTO) 155 K/uL (130-400); RED BLOOD CELL COUNT(AUTO) 4.36 MIL/uL (4.50-6.20); RED CELL DISTRIBUTION WIDTH 13.7 % (11.0-15.5); WHITE BLOOD COUNT (AUTO) 16.4 K/uL (4.8-10.8)
[2020-09-28 05:15] LABS: ALBUMIN 2.6 g/dL (3.5-5.0); BILIRUBIN,TOTAL 1.7 mg/dL (0.2-1.0); CREATININE 0.7 mg/dL (0.5-1.5); POTASSIUM 3.6 mmol/L (3.5-5.1); TOTAL PROTEIN, SERUM 6.7 g/dL (6.0-8.3)
[2020-09-28] MEDS: ZOSYN 3.375GM+NS 50ML 50 ML IV SCH ×3 (07:45→23:55)
[2020-09-28] MEDS: FAMOTIDINE/PF 20 MG/2 ML VIAL IV SCH ×2 (09:00→19:53)
[2020-09-28] MEDS ORDERED: ZOSYN 3.375GM+NS 50ML 50 ML IV ONE (09:41)
[2020-09-28] MEDS ORDERED: FAMOTIDINE/PF 20 MG/2 ML VIAL IV ONE (09:42)
[2020-09-28] MEDS ORDERED: INS7030 SQ ×2 (13:26)
[2020-09-28] MEDS: INSULIN HUMULIN R 100 UNIT/ML 3ML SQ SCH (16:13)
[2020-09-28] MEDS: SODIUM CHLORIDE 0.9% 1000ML 1,000 ML IV SCH (16:13)
[2020-09-28 17:11] VITALS: BP 130/80
--- NOTE | 2020-09-28 17:28 | NUR ---
MRCP results are back. i have called and reported them to dr jeffery and he asked me to call them to surgeon and report and see if pt should be scheduled for surgery, he said no gi consult necessary since pt does not have choledocholithiasis. i have sent a message to dianna marino for dr sim. pending call back.
[2020-09-28 19:21] VITALS: BP 140/82
[2020-09-28] MEDS ORDERED: ATORVASTATIN CALCIUM 20 MG TABLET PO SCH (21:00)
[2020-09-28 23:29] VITALS: BP 132/83
[2020-09-29 04:00] VITALS: BP 119/51
[2020-09-29] MEDS: SODIUM CHLORIDE 0.9% 1000ML 1,000 ML IV SCH (04:12)
[2020-09-29] MEDS: INSULIN HUMULIN R 100 UNIT/ML 3ML SQ SCH ×3 (05:21→12:00)
[2020-09-29 05:48] LABS: BASOPHILS % (AUTO) 0.3 % (0.0-5.0); EOSINOPHILS % (AUTO) 0.8 % (0.0-8.0); HEMATOCRIT 37.4 % (42-54); LYMPHOCYTES % (AUTO) 21.8 % (21.0-51.0); MEAN CORPUSCULAR HEMOGLOBIN 29.2 pg (27.0-33.0); MEAN CORPUSCULAR HGB CONC 32.9 g/dL (32.0-36.0); MEAN CORPUSCULAR VOLUME 88.8 fL (79-99); MONOCYTES % (AUTO) 7.8 % (3.0-13.0); PLATELET COUNT (AUTO) 182 K/uL (130-400); RED BLOOD CELL COUNT(AUTO) 4.21 MIL/uL (4.50-6.20); WHITE BLOOD COUNT (AUTO) 12.8 K/uL (4.8-10.8)
[2020-09-29 06:50] LABS: ALBUMIN 2.6 g/dL (3.5-5.0); POTASSIUM 3.7 mmol/L (3.5-5.1); TOTAL PROTEIN, SERUM 6.8 g/dL (6.0-8.3)
[2020-09-29] MEDS: ZOSYN 3.375GM+NS 50ML 50 ML IV SCH (07:08)
[2020-09-29] MEDS ORDERED: SODIUM CHLORIDE 0.9% 1000ML 1,000 ML IV SCH (07:45)
[2020-09-29 08:16] VITALS: BP 132/73
[2020-09-29] MEDS ORDERED: LISINOPRIL 10 MG TABLET PO SCH (09:00)
[2020-09-29] MEDS ORDERED: ALLOPURINOL 100 MG TABLET PO SCH (09:00)
[2020-09-29] MEDS: FAMOTIDINE/PF 20 MG/2 ML VIAL IV SCH (09:35)
[2020-09-29 12:26] VITALS: BP 157/86
[2020-09-29] MEDS ORDERED: PANT40TA55 PO (13:00)
[2020-09-29] MEDS ORDERED: AMOX-429 PO (13:00)
--- NOTE | 2020-09-29 13:05 | NUR ---
INITIAL SW met with patient. Patient states he lives with mother and step dad. No home health but has PHC with [facility] X 14 hours a week. DME: BPM, glucometer (uses insulin), shower chair, rollator. Patient is able to complete ADL's independently and drives. PCP is Dr. Jaswinder Rodriguez. [facility]acy is [facility] in [place]. DCP is at home. Addendum: 09/29/20 at 1311 by MIKEY ABEBE SS Amended: Links added.
--- NOTE | 2020-09-29 14:03 | NUR ---
PT TOLERATED GI BLAND DIET WITH NO ABDOMINAL PAIN--HE ATE 100% OF HIS FOOD; I HAVE REMOVED HIS IV ACCESS AND GIVEN HIM D/C INSTRUCTIONS ON CHOLECYSTITIS AND LOW FAT DIET; I HAVE ALSO INSTRUCTED HIM TO F/U WITH HIS PCP IN 3-5 DAYS AND GET REFERRAL TO SEE A UROLOGIST AND TO SEE DR WILLARD FOR OUTPATIENT TREATMENT OF GALLSTONES. SCRIPT FOR AUGMENTIN AND PROTONIX GIVEN. PT STATES UNDERSTANDING OF ALL INSTRUCTIONS. HE IS CALLING HIS BROTHER TO COME AND PICK HIM UP
== END 2020-09-29 15:10 | disposition home or self-care (01) ==
LOC: EDH 19:32 → EDHIP 19:33 → 3AH 09-28 12:53
PROVIDERS: ADMIT Internal Medicine; ATTEND Internal Medicine
DX: K80.00 Calculus of gallbladder with acute cholecystitis without obstruction (principal); I10 Essential (primary) hypertension; E78.5 Hyperlipidemia, unspecified; E11.9 Type 2 diabetes mellitus without complications; M10.9 Gout, unspecified; R16.0 Hepatomegaly, not elsewhere classified; D72.829 Elevated white blood cell count, unspecified; K76.0 Fatty (change of) liver, not elsewhere classified; Z82.49 Family history of ischemic heart disease and other diseases of the circulatory system; Z83.3 Family history of diabetes mellitus
CPT/HCPCS: 36415; 74177; 74181; 76705; 80053; 80061; 80305; 81001; 82550; 82948; 83036; 83605; 83690; 84145; 84484; 85025; 85610; 85730; 87040; 93005; G0378; J2405; J2543; J2765; J3490; J7030; Q9967